=== PATIENT | male | born 1980 | race Caucasian/White ===

== ENCOUNTER 2018-04-11 19:25 | Emergency (ER) | payer SELFPAY ==
[2018-04-11 19:34] VITALS: Ht 177.8 cm
[2018-04-11 20:02] LABS: microscopic required? NO
[2018-04-11 20:18] LABS: UA SPECIFIC GRAVITY 1.025 (1.005-1.035); urine erythrocyte NEGATIVE (NEGATIVE)
[2018-04-11 21:08] LABS: BASOPHIL % 0.4 % (0-2); PLATELET COUNT 242 x10^3mcL (130-400); RED CELL DISTRIBUTION WIDTH 11.9 % (11.5-14.5)
[2018-04-11 21:26] LABS: ALBUMIN 3.5 g/dL (3.4-5.0); ALKALINE PHOSPHATASE 91 U/L (46-116); ALT/SGPT 52 U/L (16-63); BILIRUBIN TOTAL 0.7 mg/dL (0.20-1.00); CARBON DIOXIDE 23.4 mmol/L (21-32); CHLORIDE SERUM 104 mmol/L (98-107); GFR1 > 60 mL/min; GLUCOSE SERUM 114 mg/dL (74-106); LIPASE 83 IU/L (73-393); POTASSIUM SERUM 3.6 mmol/L (3.5-5.1); SODIUM SERUM 135 mmol/L (136-145)
[2018-04-11 21:44] LABS: AST/SGOT 27 U/L (15-37)
[2018-04-11 21:50] VITALS: BP 128/80
[2018-04-11 22:01] LABS: CALCIUM 7.7 mg/dL (8.5-10.1)
== END 2018-04-11 21:50 | disposition home or self-care (01) ==
LOC: ED 19:25
PROVIDERS: Emergency Medicine
DX: R10.11 Right upper quadrant pain (principal); M79.10 Myalgia, unspecified site; R05 Cough
CPT/HCPCS: J1885; J7030; Q0092